=== PATIENT | male | born 1960 | race Caucasian/White ===

== ENCOUNTER 2019-03-30 07:58 | Day surgery (SDC) | payer BC ==
[~2019-03-30] VITALS: Ht 175.3 cm; Wt 133.6 kg
[~2019-03-30 07:58] MED LIST: ACET500 PO; ASPI81CH PO; FEXPSEER PO; HYDACE5 PO; IBUP400 PO; Ibuprofen Ib200 MG PO; LACT10SY PO; MAGCIT300 PO; MELA3 PO; MULTI VITAMIN1 EACH PO; NAPR500 PO; OXYACE5T PO; SIMV5 PO; ZOLP10 PO; ZOLP5 PO; Zocor20 MG PO
== END 2019-03-30 09:36 | disposition home or self-care (01) ==
LOC: ORSCSDS 07:58
PROVIDERS: Surgery
PROC: 0DBH8ZX Excision of Cecum, Via Natural or Artificial Opening Endoscopic, Diagnostic (ICD-10-PCS; principal; 2019-03-30 09:00)
DX: Z12.11 Encounter for screening for malignant neoplasm of colon (principal); D12.0 Benign neoplasm of cecum; Z83.71 Family history of colonic polyps; G47.33 Obstructive sleep apnea (adult) (pediatric); J45.909 Unspecified asthma, uncomplicated; E66.01 Morbid (severe) obesity due to excess calories; Z68.41 Body mass index [BMI] 40.0-44.9, adult; I10 Essential (primary) hypertension; F17.220 Nicotine dependence, chewing tobacco, uncomplicated; Z79.899 Other long term (current) drug therapy
CPT/HCPCS: 88305; J2704; J7120

== ENCOUNTER 2019-04-28 07:20 | Day surgery (SDC) | payer BC ==
[~2019-04-28] VITALS: Ht 172.7 cm; Wt 134.6 kg
--- NOTE | 2019-04-28 08:40 | NUR ---
04/28/19 0840 Faith Herzog LEFT ARM SECRUED ON TOP OF CHEST WITH KERLIX
== END 2019-04-28 09:54 | disposition home or self-care (01) ==
LOC: ORSCSDS 07:20
PROVIDERS: Surgery
PROC: 0JBF0ZZ Excision of Left Upper Arm Subcutaneous Tissue and Fascia, Open Approach (ICD-10-PCS; principal; 2019-04-28 08:30)
DX: D17.22 Benign lipomatous neoplasm of skin and subcutaneous tissue of left arm (principal); I10 Essential (primary) hypertension; G47.33 Obstructive sleep apnea (adult) (pediatric); E66.01 Morbid (severe) obesity due to excess calories; Z68.42 Body mass index [BMI] 45.0-49.9, adult; Z79.899 Other long term (current) drug therapy
CPT/HCPCS: 88304; J0690; J1100; J2250; J2405; J2704; J7120

== ENCOUNTER 2019-12-07 12:03 | Emergency (ER) | payer OTHER, BC ==
[~2019-12-07] VITALS: Ht 172.7 cm; Wt 131.5 kg
== END 2019-12-07 13:46 | disposition home or self-care (01) ==
LOC: ER 12:03
DX: M25.512 Pain in left shoulder (principal); G47.30 Sleep apnea, unspecified; Z79.899 Other long term (current) drug therapy; W01.0XXA Fall on same level from slipping, tripping and stumbling without subsequent striking against object, initial encounter
CPT/HCPCS: 73030; 73090; 99283-25

== ENCOUNTER → 2020-03-25 | Outpatient (CLI) | payer BC ==
[2020-03-25 09:26] LABS: BASOPHILS ABSOLUTE AUTO 0.03 K/mm3 (0.00-0.23); BASOPHILS PERCENT AUTO 0 % (0-2); EOSINOPHILS ABSOLUTE AUTO 0.05 K/mm3 (0.00-0.68); EOSINOPHILS PERCENT AUTO 1 % (0-6); Hematocrit 44.6 % (37.0-53.0); Hemoglobin 15.2 g/dL (13.5-17.5); IMMATURE GRAN ABSOLUTE AUTO 0.02 K/mm3 (0.00-0.10); IMMATURE GRAN PERCENT AUTO 0 % (0-1); LYMPHOCYTES ABSOLUTE AUTO 2.17 K/mm3 (0.84-5.20); LYMPHOCYTES PERCENT AUTO 30 % (21-46); MONOCYTES ABSOLUTE AUTO 0.39 K/mm3 (0.16-1.47); MONOCYTES PERCENT AUTO 5 % (4-13); Mean Corpuscular HGB 29.7 pg (26.0-34.0); Mean Corpuscular HGB Conc 34.1 g/dL (31.5-36.5); Mean Corpuscular Volume 87 fL (80-100); Mean Platelet Volume 10.2 fL (9.1-12.4); NEUTROPHILS ABSOLUTE AUTO 4.53 K/mm3 (1.96-9.15); NEUTROPHILS PERCENT AUTO 63 % (41-73); Platelet Count 208 K/mm3 (150-400); RDW Coefficient Variation 12.9 % (11.7-14.2); RDW Standard Deviation 40.5 fL (35.1-46.3); Red Blood Cell Count 5.12 M/mm3 (4.30-5.90); White Blood Cell Count 7.19 K/mm3 (4.00-11.30)
[2020-03-25 09:33] LABS: Alanine Aminotransfer (ALT/SGP 30 U/L (12-78); Albumin, Blood 4.2 g/dL (3.4-5.0); Albumin/Globulin Ratio 1.4 (0.8-1.8); Alk Phos 71 U/L (40-126); Anion Gap 8 mmol/L (6-16); Aspartate Aminotrans (AST/SGOT 19 U/L (12-37); Bilirubin, Total 0.9 mg/dL (0.1-1.0); Blood Urea Nitrogen 18 mg/dL (8-24); Bun/Creatinine Ratio 17.6 (12.0-20.0); CO2, Blood 28 mmol/L (21-32); Calcium, Blood 9.3 mg/dL (8.5-10.1); Chloride, Blood 105 mmol/L (98-108); Creatinine, Blood 1.02 mg/dL (0.60-1.20); Globulin, Blood 3.1 g/dL (2.2-4.0); Glomerular Filtration Rate >60 (60-); Glucose, Blood 116 mg/dL (70-99); Potassium, Blood 4.3 mmol/L (3.5-5.5); Sodium, Blood 141 mmol/L (136-145); Total Protein, Blood 7.3 g/dL (6.4-8.2)
== END | disposition home or self-care (01) ==
LOC: LAB SHORT 09:12 → LAB EV 09:12
PROVIDERS: Physician Assistant
DX: R11.2 Nausea with vomiting, unspecified (principal)
CPT/HCPCS: 80053; 83690; 85025

== ENCOUNTER → 2023-02-05 | Outpatient (CLI) | payer BC ==
[2023-02-05 14:18] LABS: Microalb/Creat Ratio UR, Rand Unable to Calculate mg/g (0.000-30.000); Microalbumin, Random Urine <5.000 mg/L (0.000-20.000)
== END ==
LOC: LAB SHORT 10:35
PROVIDERS: Hospitalist
DX: I10 Essential (primary) hypertension (principal)
CPT/HCPCS: 82043; 82570

== ENCOUNTER 2023-07-27 09:22 | Day surgery (SDC) | payer BC ==
[2023-07-27] VITALS (14 sets, daily range): BP systolic 90–135; BP diastolic 55–91
[~2023-07-27] VITALS: Ht 172.7 cm; Wt 127.2 kg
[~2023-07-27 09:22] MED LIST changes: +AMLO5 PO; +ATOR10 PO; +OLME5TAB PO; +ROSU5 PO; +[UNRECOGNIZED DRUG - OTHER] PO; +[UNRECOGNIZED DRUG - REMARK] PO
[2023-07-27] MEDS ORDERED: MULVITA PO ×2 (10:23)
[2023-07-27] MEDS ORDERED: OZEMPIC0.25 MG/02 SQ ×2 (10:25)
--- NOTE | 2023-07-27 15:26 | NUR ---
PATIENT ARRIVED FROM PACU TODAY AT 1520. POD 0 LEFT TOTAL KNEE PATIENT IS A&OX4. SBP IS SOFT BUT OTHERWISE VS ARE WNL AND IS ON RA. PATIENT HAD SPINAL DURING PROCEDURE AND IS NUMB FROM THE WAIST DOWN BUT IS ABLE TO FEEL PRESSURE. HE DENIES PAIN AT THIS TIME. HIS LEFT KNEE HAS AN AQUACEL AND MARLON WRAP THAT IS C/D/I. HIS PEDAL PULSES ARE STRONG AND WARM TO TOUCH. HE IS TOLERATING SMALL AMOUNTS OF PO INTAKE. HE IS LAYING IN BED WITH AT BEDSIDE AND CALL LIGHT WITHIN REACH.
--- NOTE | 2023-07-27 17:08 | NUR ---
SHIFT SUMMARY: POD 0 LEFT TOTAL KNEE NO SIGNIFICANT CHANGES SINCE POST OP. PATIENT IS A&OX4. VS ARE WNL AND IS ON RA. PAIN IS MANAGED WITH TYLENOL, TORADOL, AND OXY. HIS LEFT KNEE HAS AQUACEL AND MARLON WRAP THAT IS C/D/I. HE HAD A SPINAL DONE DURING THE PROCEDURE BUT HE REPORTS "I HAVE MORE SENSATION AND CAN FEEL THE ICE PACK COOLNESS ON MY KNEE NOW". HE IS ABLE TO WIGGLE FINGERS AND TOES WHEN ASKED. HE IS TOLERATING PO INTAKE. HE IS LAYING IN BED WITH CALL LIGHT IN REACH AND AT BEDSIDE.
[2023-07-28 03:33] VITALS: BP 112/62
--- NOTE | 2023-07-28 03:50 | NUR ---
SHIFT SUMMARY PT POD 0 LEFT TOTAL KNEE, PT HAS DONE WELL OVERNIGHT. PT REPORTS PAIN 4/10, RELIEVED WITH MEDS PER EMAR. DENIES N/T IN EXT. PT HAS BEEN UP AND AMBULATING, AND HAS VOIDED. TOLERATING PO INTAKE. VITALS ARE STABLE. DRESSING IS C/D/I. PLAN IS FOR DC TODAY.
[2023-07-28 04:41] LABS: BASOPHILS ABSOLUTE AUTO 0.02 K/mm3 (0.00-0.23); BASOPHILS PERCENT AUTO 0 % (0-2); EOSINOPHILS ABSOLUTE AUTO 0.06 K/mm3 (0.00-0.68); EOSINOPHILS PERCENT AUTO 1 % (0-6); Hemoglobin 12.5 g/dL (13.5-17.5); IMMATURE GRAN ABSOLUTE AUTO 0.03 K/mm3 (0.00-0.10); IMMATURE GRAN PERCENT AUTO 0 % (0-1); LYMPHOCYTES ABSOLUTE AUTO 2.07 K/mm3 (0.84-5.20); LYMPHOCYTES PERCENT AUTO 24 % (21-46); MONOCYTES ABSOLUTE AUTO 0.71 K/mm3 (0.16-1.47); MONOCYTES PERCENT AUTO 8 % (4-13); Mean Corpuscular HGB 29.7 pg (26.0-34.0); Mean Corpuscular HGB Conc 33.8 g/dL (31.5-36.5); Mean Corpuscular Volume 88 fL (80-100); Mean Platelet Volume 10.4 fL (9.1-12.4); NEUTROPHILS ABSOLUTE AUTO 5.91 K/mm3 (1.96-9.15); NEUTROPHILS PERCENT AUTO 67 % (41-73); Platelet Count 191 K/mm3 (150-400); RDW Coefficient Variation 12.7 % (11.7-14.2); Red Blood Cell Count 4.21 M/mm3 (4.30-5.90)
[2023-07-28 06:50] LABS: Calcium, Blood 9.3 mg/dL (8.5-10.1); Creatinine, Blood 0.86 mg/dL (0.60-1.20)
[2023-07-28 07:04] VITALS: BP 131/78
[2023-07-28] MEDS ORDERED: ASPI81CH PO ×2 (08:15)
[2023-07-28] MEDS ORDERED: Percocet 5-3251 EACH PO ×2 (08:18)
--- NOTE | 2023-07-28 09:42 | NUR ---
DISCHARGE NOTE: PATIENT WAS EDUCATED ON DISCHARGE INSTRUCTIONS. HE VERBALIZED UNDERSTANDING OF INSTRUCTIONS AND HAD NO FURTHER QUESTIONS AT THIS TIME. ALREADY RECIEVED PATIENTS HARD PERSCRITPIONS YESTERDAY AND GOT THEM FILLED. PAIN IS MANAGED WITH ORAL PAIN MEDS. HIS LEFT KNEE HAS AN MARLON WRAP AND AQUACEL THAT ARE C/D/I. DENIES NUMBNESS OR TINGLING. CAN MOVE ALL FINGERS AND TOES WHEN ASKED. PATIENT IS TOLERATING PO INTAKE AND IS VOIDING. PATIENT IS DRESSED AND HAS PERSONAL ITEMS IN THE ROOM GATHERED. PATIENT IS AWAITING FOR HIS TO COME PICK HIM UP TO TAKE HIM HOME.
--- NOTE | 2023-07-28 10:35 | NUR ---
PATIENTS RIDE JUST SHOWED UP. PATIENT HAS HIS ITEMS IN THE ROOM GATHERED. HE IS GOING TO BE TAKEN DOWN TO HIS WIFES CAR IN A WHEELCHAIR TO BE TAKEN HOME.
[2023-07-28 14:06] LABS: Potassium, Blood 3.6 mmol/L (3.5-5.5)
== END 2023-07-28 10:37 | disposition home or self-care (01) ==
LOC: ORSCMMR 09:22 → ORD 11:00 → SURS 14:58 → ORSCMMR 07-28 10:37
PROVIDERS: Orthopaedic Surgery
PROC: 0SRD0JA Replacement of Left Knee Joint with Synthetic Substitute, Uncemented, Open Approach (ICD-10-PCS; principal; 2023-07-27 12:00)
DX: M17.12 Unilateral primary osteoarthritis, left knee (principal); E78.5 Hyperlipidemia, unspecified; Z79.899 Other long term (current) drug therapy; E66.01 Morbid (severe) obesity due to excess calories; Z68.41 Body mass index [BMI] 40.0-44.9, adult
CPT/HCPCS: 36415; 73560-LT; 80048; 82947; 85025; 97110; 97116; 97161; 97530; A9270; C1776; J0171; J0690; J0735; J1815; J1885; J2250; J2704; J2795; J3010; J7120

== ENCOUNTER 2023-07-31 17:37 | Emergency (ER) | payer BC ==
[~2023-07-31] VITALS: Ht 172.7 cm; Wt 124.7 kg
[~2023-07-31 17:37] MED LIST changes: +MULVITA PO; +OZEMPIC0.25 MG/02 SQ; +Percocet 5-3251 EACH PO
[2023-07-31 19:11] LABS: BASOPHILS ABSOLUTE AUTO 0.03 K/mm3 (0.00-0.23); BASOPHILS PERCENT AUTO 0 % (0-2); EOSINOPHILS ABSOLUTE AUTO 0.03 K/mm3 (0.00-0.68); EOSINOPHILS PERCENT AUTO 0 % (0-6); Hematocrit 36.3 % (37.0-53.0); Hemoglobin 12.4 g/dL (13.5-17.5); IMMATURE GRAN ABSOLUTE AUTO 0.02 K/mm3 (0.00-0.10); IMMATURE GRAN PERCENT AUTO 0 % (0-1); LYMPHOCYTES ABSOLUTE AUTO 1.07 K/mm3 (0.84-5.20); LYMPHOCYTES PERCENT AUTO 16 % (21-46); MONOCYTES ABSOLUTE AUTO 0.58 K/mm3 (0.16-1.47); MONOCYTES PERCENT AUTO 9 % (4-13); Mean Corpuscular HGB 29.7 pg (26.0-34.0); Mean Corpuscular HGB Conc 34.2 g/dL (31.5-36.5); Mean Corpuscular Volume 87 fL (80-100); Mean Platelet Volume 10.1 fL (9.1-12.4); NEUTROPHILS ABSOLUTE AUTO 5.06 K/mm3 (1.96-9.15); NEUTROPHILS PERCENT AUTO 75 % (41-73); Platelet Count 231 K/mm3 (150-400); RDW Coefficient Variation 12.4 % (11.7-14.2); RDW Standard Deviation 39.5 fL (35.1-46.3); Red Blood Cell Count 4.17 M/mm3 (4.30-5.90); White Blood Cell Count 6.79 K/mm3 (4.00-11.30)
[2023-07-31 19:24] LABS: C-REACTIVE PROTEIN, EXT RANGE 12.1 mg/dL (0.000-0.300)
[2023-07-31 19:25] LABS: Albumin, Blood 3.1 g/dL (3.4-5.0); Albumin/Globulin Ratio 0.8 (0.8-1.8); Bilirubin, Total 0.6 mg/dL (0.1-1.0); Bun/Creatinine Ratio 12.9 (12.0-20.0); Calcium, Blood 9.6 mg/dL (8.5-10.1); Creatinine, Blood 0.93 mg/dL (0.60-1.20); Globulin, Blood 3.9 g/dL (2.2-4.0); Potassium, Blood 3.7 mmol/L (3.5-5.5)
[2023-07-31 20:39] VITALS: BP 127/70
== END 2023-07-31 20:39 | disposition home or self-care (01) ==
LOC: ER 17:37
PROVIDERS: Student in an Organized Health Care Education/Training Program
DX: S80.02XA Contusion of left knee, initial encounter (principal); S70.12XA Contusion of left thigh, initial encounter; Z96.652 Presence of left artificial knee joint; Z79.82 Long term (current) use of aspirin; Z79.899 Other long term (current) drug therapy; X58.XXXA Exposure to other specified factors, initial encounter
CPT/HCPCS: 80053; 85025; 85651; 86140; 99283

== ENCOUNTER → 2024-06-30 | Outpatient (CLI) | payer BC ==
[2024-06-30 14:04] LABS: Microalb/Creat Ratio UR, Rand 4.447 mg/g (0.000-30.000); Microalbumin, Random Urine 5.47 mg/L (0.000-20.000)
== END | disposition home or self-care (01) ==
LOC: LAB FUT 06-25 14:50 → LAB SHORT 11:41 → LAB 11:41
PROVIDERS: Hospitalist
DX: I10 Essential (primary) hypertension (principal)
CPT/HCPCS: 82043; 82570

== ENCOUNTER 2024-10-24 08:29 | Day surgery (SDC) | payer BC ==
[2024-10-24] VITALS (15 sets, daily range): BP systolic 96–127; BP diastolic 49–88
[~2024-10-24] VITALS: Ht 172.7 cm; Wt 133.2 kg
[~2024-10-24 08:29] MED LIST changes: +ACETAMINOPHEN PO; +IBUP600 PO; -ROSU5 PO; +ROSUVASTATIN CAL5 MG PO
[2024-10-24] MEDS ORDERED: Chlorhexidine Mouth Care 15 ML UDC MT SCH (09:05)
[2024-10-24] MEDS ORDERED: Acetaminophen 500 MG Tab PO SCH ×2 (09:05→16:00)
[2024-10-24] MEDS ORDERED: OxyCODONE HCL 10 MG TABCR PO SCH (09:05)
[2024-10-24] MEDS ORDERED: Lactated Ringer's 1,000 ML IV SCH ×2 (09:05→10:40)
[2024-10-24] MEDS ORDERED: Tranexamic Acid 1,000 MG in NS 100 ML IV SCH (09:05)
[2024-10-24] MEDS ORDERED: Ropivacaine 0.5% HCl/Pf 123.125 MG,EPINEPHrine HCL 0.25 MG,Ketorolac Tromethamine 15 MG... INFIL SCH (09:05)
--- NOTE | 2024-10-24 09:15 | NUR ---
Ambulatory in Day Surgery History, Chart, Medications and Allergies reviewed before start of procedure. Pre-Op teaching done. Pt verbalizes understanding.
[2024-10-24] MEDS ORDERED: CeFAZolin Sodium 3,000 MG in NS 100 ML IV SCH (09:25)
[2024-10-24] MEDS ORDERED: Ondansetron HCl 2 MG / ML 2ML Vial ONE (10:11)
[2024-10-24] MEDS ORDERED: Ketorolac Tromethamine 30mg Vial ONE (10:11)
[2024-10-24] MEDS ORDERED: Dexamethasone Sod Phos 10 MG/ML 1ML VIAL ONE (10:11)
[2024-10-24] MEDS ORDERED: OxyCODONE HCL 5 MG TAB PO PRN ×2 (10:30)
[2024-10-24] MEDS ORDERED: DiphenhydrAMINE HCL 25 MG Cap PO PRN (10:35)
[2024-10-24] MEDS ORDERED: Bisacodyl 10 MG Supp PR PRN (10:35)
[2024-10-24] MEDS ORDERED: FLU VACC TS2024-25(6MOS UP)/PF 45 MCG/0.5 ML SYRINGE IM PRN (10:35)
[2024-10-24] MEDS ORDERED: Promethazine HCl 25 MG Tab PO PRN (10:35)
[2024-10-24] MEDS ORDERED: HYDROmorphone HCl/Pf 1MG SYR IV PRN (10:40)
[2024-10-24] MEDS ORDERED: Metoclopramide HCl 5MG / ML 2ML Vial IV PRN (10:40)
[2024-10-24] MEDS ORDERED: Magnesium Hydroxide Conc 10 ML UDC PO PRN (10:40)
[2024-10-24] MEDS ORDERED: Ondansetron HCl 2 MG / ML 2ML Vial IV PRN (10:40)
[2024-10-24] MEDS ORDERED: Bupivacaine 0.5% Inj 10 ML Vial ONE (10:46)
[2024-10-24] MEDS ORDERED: propofoL 100 ML IV ONE (10:46)
[2024-10-24] MEDS ORDERED: FentaNYL Citrate 50 MCG/ML 2 ML Injection ONE ×2 (10:53→12:50)
[2024-10-24] MEDS ORDERED: Metoclopramide HCl 5MG / ML 2ML Vial ONE (11:03)
[2024-10-24] MEDS ORDERED: Phenylephrine HCl 100 MCG/ML-NS 10MLSYR (1MG/10ML) ONE ×2 (11:18→11:33)
[2024-10-24] MEDS ORDERED: Vasopressin 20 UNITS/ML 1ML Vial ONE (11:46)
[2024-10-24] MEDS ORDERED: ePHEDrine Sulfate 50 MG/ML 1ML Injection ONE (12:00)
[2024-10-24] MEDS ORDERED: propofoL 20 ML IV ONE ×3 (12:06→13:10)
[2024-10-24] MEDS ORDERED: Ketorolac Tromethamine 15mg Vial IV SCH (18:00)
[2024-10-24] MEDS ORDERED: CeFAZolin Sodium 2,000 MG in NS 100 ML IV SCH (19:00)
--- NOTE | 2024-10-24 20:07 | NUR ---
SHIFT SUMMARY WORKED w/ THERAPY, VOIDED, PAIN WELL CONTROLLED, SURG SITE WNL.
[2024-10-24] MEDS ORDERED: Zolpidem Tartrate 10 MG Tab PO SCH (21:00)
[2024-10-24] MEDS ORDERED: Docusate Sodium 100 MG Cap PO SCH (21:00)
[2024-10-24] MEDS ORDERED: Rosuvastatin Calcium 10 MG Tab PO SCH (21:00)
[2024-10-25 03:25] VITALS: BP 126/71
--- NOTE | 2024-10-25 04:16 | NUR ---
SHIFT SUMMARY POD 1 R TKA PT ABLE TO REST DURING THE NIGHT. PAIN MANAGED PER EMAR. TOLERATING PO INTAKE, VOIDING. 1P SBA W/ FWW AND GB TO TRANSFER. DRESSING TO R KNEE OF MARLON AND AQUACEL IS C/D/I. PT TO GET UP IN CHAIR THIS AM AND THEN HAVE THERAPY. THEN SHOUDL D/C HOME. VSS. NO OTHER CONCERNS AT THIS TIMME, CALL LIGHT WITHIN REACH
[2024-10-25 05:42] LABS: BASOPHILS ABSOLUTE AUTO 0.01 K/mm3 (0.00-0.23); BASOPHILS PERCENT AUTO 0 % (0-2); EOSINOPHILS PERCENT AUTO 0 % (0-6); Hematocrit 36.1 % (37.0-53.0); Hemoglobin 12.5 g/dL (13.5-17.5); IMMATURE GRAN ABSOLUTE AUTO 0.07 K/mm3 (0.00-0.10); IMMATURE GRAN PERCENT AUTO 1 % (0-1); LYMPHOCYTES ABSOLUTE AUTO 1.24 K/mm3 (0.84-5.20); LYMPHOCYTES PERCENT AUTO 10 % (21-46); MONOCYTES ABSOLUTE AUTO 0.82 K/mm3 (0.16-1.47); MONOCYTES PERCENT AUTO 6 % (4-13); Mean Corpuscular HGB 30.4 pg (26.0-34.0); Mean Corpuscular HGB Conc 34.6 g/dL (31.5-36.5); Mean Corpuscular Volume 88 fL (80-100); Mean Platelet Volume 9.6 fL (9.1-12.4); NEUTROPHILS ABSOLUTE AUTO 10.94 K/mm3 (1.96-9.15); NEUTROPHILS PERCENT AUTO 84 % (41-73); Platelet Count 221 K/mm3 (150-400); RDW Coefficient Variation 12.8 % (11.7-14.2); RDW Standard Deviation 41.2 fL (35.1-46.3); Red Blood Cell Count 4.11 M/mm3 (4.30-5.90); White Blood Cell Count 13.08 K/mm3 (4.00-11.30)
[2024-10-25 06:10] LABS: Bun/Creatinine Ratio 23.6 (12.0-20.0); Calcium, Blood 9.4 mg/dL (8.5-10.1); Creatinine, Blood 0.81 mg/dL (0.60-1.20); Potassium, Blood 4.4 mmol/L (3.5-5.5)
[2024-10-25 07:28] VITALS: BP 123/74
[2024-10-25] MEDS ORDERED: Losartan Potassium 25 MG Tab PO SCH (09:00)
[2024-10-25] MEDS ORDERED: Aspirin 81 MG Chew PO SCH (09:00)
[2024-10-25] MEDS ORDERED: Multivitamins 1 Tab PO SCH (09:00)
--- NOTE | 2024-10-25 10:30 | NUR ---
DISCHARGE NOTE PT A/OX4. POD1 R TKA. PT CLEARED BY PHYSICAL THERAPY. LAURA PO INTAKE WELL AND VOIDING. DRSG TO R KNEE C/D/I. SENT HOME WITH EXTRA AQUACEL DRESSINGS. PT TO F/U WITH [facility]THO IN 2 WEEKS. QUESTIONS ANSWERED BY PT AND FAMILY. PT ESCORTED TO LOBBY VIA WC.
[2024-10-29] MEDS ORDERED: SEMAGLUTIDE 2 MG/3 ML SC SCH (12:40)
== END 2024-10-25 10:40 | disposition home or self-care (01) ==
LOC: ORSCMMR 08:29 → ORD 10:00 → SURS 14:18 → ORSCMMR 10-25 10:40
PROVIDERS: Orthopaedic Surgery
PROC: 0SRC0J9 Replacement of Right Knee Joint with Synthetic Substitute, Cemented, Open Approach (ICD-10-PCS; principal; 2024-10-24 10:00)
DX: M17.11 Unilateral primary osteoarthritis, right knee (principal); E66.01 Morbid (severe) obesity due to excess calories; Z68.41 Body mass index [BMI] 40.0-44.9, adult; I10 Essential (primary) hypertension; E78.5 Hyperlipidemia, unspecified; G47.33 Obstructive sleep apnea (adult) (pediatric); Z79.899 Other long term (current) drug therapy; Z79.82 Long term (current) use of aspirin; Z79.85 Long-term (current) use of injectable non-insulin antidiabetic drugs
CPT/HCPCS: 36415; 73560-RT; 80048; 85025; 97110; 97116; 97161; 97530; A9270; C1713; C1776; J0171; J0690; J0735; J1100; J1885; J2371; J2405; J2704; J2765; J2795; J3010; J7120

== ENCOUNTER 2025-09-12 10:20 | Day surgery (SDC) | payer BC ==
[~2025-09-12] VITALS: Ht 172.7 cm; Wt 132.2 kg
[~2025-09-12 10:20] MED LIST changes: +ASPIR 8181 M1 PO; +Prilosec10 M1 PO
[2025-09-12 11:34] VITALS: BP 125/80
--- NOTE | 2025-09-12 11:49 | NUR ---
History, Chart, Medications and Allergies reviewed before start of procedure. Pre-Op teaching done. Pt verbalizes understanding. Patient confirms NPO status and agrees with scheduled surgery. Patient states colon prep results LIGHT YELLOW.
--- NOTE | 2025-09-12 12:11 | NUR ---
09/12/25 [email or web address] Sera Hung ENDO 2 @ 1208-CONFIRMED AND REVIEWED H&P, MEDCICATIONS, ALLERGIES, MEDICAL HISTORY, RESPIRATORY HISTORY, VITAL SIGNS, 3-LEAD EKG, CONSENTS, AND PHYSICIAN ORDERS. PATIENT CONFIRMS NPO STATUS AND AGREES WITH SCHEDULED PROCEDURE. MONITOR INTACT WITH CONTINUOUS PULSE OXIMETRY, CAPNOGRAPHY, 3-LEAD EKG, INTERMITTENT BP. SUPPLEMENTAL O2 TO BE TITRATED THROUGHOUT PROCEDURE TO MAINTAIN O2 SATURATION ABOVE 90%. PATIENT DETERMINED TO BE ASA APPROPRIATE FOR MAC. FERMÍN KINGSLEY PROVIDING MAC-SEE ANESTHESIA RECORD.
[2025-09-12 12:40] VITALS: BP 99/63
[2025-09-12 12:44] VITALS: BP 106/70
--- NOTE | 2025-09-12 12:48 | NUR ---
Patient up to Ambulate independently. Gait steady. Discharge instructions reviewed with patient. Patient verbalizes understanding. Copy given to patient to take home. Discharged via wheelchair to private car for ride home.
== END 2025-09-12 23:00 | disposition home or self-care (01) ==
LOC: ORSCMMR 10:20 → ORD 11:30 → ORSCMMR 11:30
PROVIDERS: Internal Medicine Gastroenterology
PROC: 0DBN8ZX Excision of Sigmoid Colon, Via Natural or Artificial Opening Endoscopic, Diagnostic (ICD-10-PCS; principal; 2025-09-12 11:30)
DX: Z12.11 Encounter for screening for malignant neoplasm of colon (principal); Z86.0100 Personal history of colon polyps, unspecified; K63.5 Polyp of colon; I10 Essential (primary) hypertension; E78.5 Hyperlipidemia, unspecified; G47.33 Obstructive sleep apnea (adult) (pediatric); E11.9 Type 2 diabetes mellitus without complications; E66.9 Obesity, unspecified; Z68.41 Body mass index [BMI] 40.0-44.9, adult; Z79.899 Other long term (current) drug therapy; Z79.85 Long-term (current) use of injectable non-insulin antidiabetic drugs
CPT/HCPCS: 88305; J2704; J7120